=== PATIENT | female | born 1960 | race Two or more races ===

== ENCOUNTER 2020-12-17 12:55 | Emergency (ER) | payer OTHER ==
[~2020-12-17] VITALS: Ht 162.6 cm; Wt 65.8 kg
[2020-12-17] MEDS ORDERED: LABETALOL HCL 5 MG/ML 4ML SYRINGE IV ONE (13:00)
[2020-12-17 13:42] LABS: Urine Bacteria FEW /hpf (None Seen); Urine Blood 3+ /uL (Negative); Urine Specific Gravity 1.005 (1.001-1.035); Urine WBC 5 /hpf (0 - 5)
[2020-12-17 13:45] LABS: Basophils # (auto) 0 10 ^3/uL (0-0.2); Basophils % (auto) 0.5 % (0.0-2.0); Eosinophils # (auto) 0 10 ^3/uL (0-0.8); Eosinophils % (auto) 0.5 % (0.0-7.0); Hematocrit 42.8 % (36.0-46.0); Hemoglobin 14.9 g/dL (12.2-16.2); Lymphocytes % (auto) 30.4 % (10.0-50.0); Mean Corpuscular Hemoglobin 30.6 pg (28.0-32.0); Mean Corpuscular Hgb Conc. 34.7 g/dL (32.0-36.0); Mean Corpuscular Volume 87.9 fL (80.0-100.0); Monocytes # (auto) 0.4 10 ^3/uL (0-1.3); Monocytes % (auto) 6.4 % (0.0-12.0); Neutrophils % (auto) 62.2 % (37.0-80.0); Nucleated Red Blood Cells % 0.1 %; Red Blood Cells 4.87 10^6/uL (4.0-5.20); Red Cell Distribution Width 13.3 % (11.8-14.3); White Blood Cell 6.4 10^3/uL (4.4-10.8)
[2020-12-17 14:09] LABS: Albumin 3.8 g/dL (3.4-5.0); Anion Gap 7 (5-15); Blood Urea Nitrogen 11 mg/dL (7-18); Carbon Dioxide 27 mmol/L (21-32); Chloride 106 mmol/L (98-107); Glucose 87 mg/dL (74-106); Potassium 3.7 mmol/L (3.5-5.1); Sodium 140 mmol/L (136-145)
[2020-12-17 14:16] LABS: Alanine Aminotransferase 39 U/L (13-56); Alkaline Phosphatase 86 U/L (45-117); Aspartate Aminotransferase 22 U/L (15-37); BUN/Creatinine Ratio 17.2; Bilirubin, Total 0.2 mg/dL (0.2-1.0); GFR African American 121 mL/min; GFR Non-African American 100 mL/min; Total Protein 8.2 g/dL (6.4-8.2)
[2020-12-17 14:49] VITALS: BP 142/71
== END 2020-12-17 14:32 | disposition home or self-care (01) ==
LOC: ER 12:55 → EDBD 12:55 → ER 14:32
DX: I16.0 Hypertensive urgency (principal); I10 Essential (primary) hypertension; R51.9 Headache, unspecified
CPT/HCPCS: 36415; 70450; 80053; 81001; 84484; 85025; 93005; 96374; 99285; J3490